=== PATIENT | female | born 1955 | race Caucasian/White ===

== ENCOUNTER → 2020-04-11 11:25 | Outpatient (CLI) | payer MEDICARE, SELFPAY ==
--- NOTE | ~2020-04-11 | US_ITS ---
US transvaginal DATE: 04/11/2020 11:48 INDICATION: Postmenopausal bleeding TECHNIQUE: Real-time imaging via transvaginal approach COMPARISON: 12/05/2017 transvaginal pelvic ultrasound examination FINDINGS: There is mesh is approximately 5.7 cm height, 2.7 cm AP and 3.2 cm transverse dimension. Th e endometrial echo measures approximately 3 mm AP dimension. Right anterior approximate 1 cm uterine fibroid is suggested. Approximate 7 mm hyperechoic left uterine fibroid is suggested. The ovaries are not detected. No pelvic mass or abnormal pelvic fluid collection is noted. IMPRESSION: Probable small uterine fibroids The ovaries are not detected No pelvic mass or abnormal pelvic fluid collection is evident. Reviewed, dictated and finalized at Location [facility]. Reviewed, dictated and finalized at location B.
== END ==
PROVIDERS: PCP Internal Medicine; Visit Provider Nurse Practitioner
DX: N95.0 Postmenopausal bleeding (principal)
CPT/HCPCS: 76830

== ENCOUNTER 2020-05-03 11:16 | Outpatient (CLI) | payer MEDICARE, SELFPAY ==
--- NOTE | 2020-05-03 11:18 | ECG_ITS ---
Measurements Intervals [place] Rate: 80 P: 58 DE: 161 QRS: -4 QRSD: 102 T: 39 QT: 369 QTc: 428 Interpretive Statements SINUS RHYTHM POOR R WAVE PROGRESSION, ANTERIOR LEADS BASELINE ARTIFACT- I, II, III, AVR, AVL, AVF BORDERLINE ECG Electronically Signed On 05-03-2020 12:03:29 CDT by Stevo Hirsch D.O.
== END 2020-05-03 11:17 | disposition home or self-care (01) ==
LOC: ANHSURGERY 11:18
PROVIDERS: PCP Internal Medicine; Visit Provider Obstetrics & Gynecology Gynecology
DX: Z01.818 Encounter for other preprocedural examination (principal); I10 Essential (primary) hypertension
CPT/HCPCS: 93005

== ENCOUNTER 2020-05-05 03:36 | Outpatient (CLI) | payer MEDICARE, SELFPAY ==
[2020-05-05 17:45] LABS: SARS-CoV-2 RNA PCR Negative
== END 2020-05-05 03:37 | disposition home or self-care (01) ==
LOC: ANHCOVIDDT 03:36
PROVIDERS: PCP Internal Medicine; Visit Provider Obstetrics & Gynecology Gynecology
DX: Z01.812 Encounter for preprocedural laboratory examination (principal); Z20.828 Contact with and (suspected) exposure to other viral communicable diseases
CPT/HCPCS: 87635; C9803; U0003

== ENCOUNTER 2020-05-08 01:11 | Day surgery (SDC) | payer MEDICARE, SELFPAY ==
[2020-05-01 12:39] VITALS: BMI 38.7
[2020-05-08] MEDS: LACTATED RINGERS 1,000 ML 30 ML IV CONT ×2 (07:30→10:16)
--- NOTE | 2020-05-08 07:36 | PM.HPGS ---
History of Present Illness History of Present Illness Consent: Risks, benefits, and alternatives have been discussed and questions answered. Patient agrees to proceed with procedure. Chief complaint: Post Menopausal Bleeding Narrative: Rosalia Chavira is a 64 year old female with postmenopausal bleeding. Patient with history of prior D&C with polyps. Recommend to proceed with hysteroscopy and D&C. Reviewed possible pathology as well as risks of procedure (including infection, bleeding, perforation). Agrees to proceed. [facility] Past Medical History Medical History (Updated 05/08/20 @ 07:50 by Ofelia Chairez MD) Anxiety BMI 39.0-39.9,adult Cholecystectomy planned Depression Essential hypertension Hypothyroidism Obesity Status post hysteroscopy 2009, 2012, 2018 Surgical History Surgical History (Updated 05/08/20 @ 07:41 by Ofelia Chairez MD) H/O breast biopsy H/O: knee surgery x 2 arthoscopy and Left Total knee replacement History of appendectomy History of hernia surgery Previous back surgery S/P laparoscopic cholecystectomy Family History Family History Mother Hypertension Family history of arthritis Father Family history of congestive heart failure Social History Social History Smoking packs per day: 0.5 Smoking cigarettes per day: 10.0 Years smoked: 4 Smoking pack-years: 2.00 Smoking status: Former smoker Tobacco type: cigarettes Second hand tobacco smoke exposure: No Smoking end date: 07/14/79 Alcohol intake: current Living arrangements: with family Spiritual care concerns: No Meds Home Medications and Allergies Home Medications Medication Instructions Recorded Confirmed Type amlodipine 5 mg tablet 5 mg PO DAILY 10/05/19 05/01/20 History montelukast 10 mg tablet 10 mg PO DAILY 10/05/19 05/01/20 History odmztefaqwot-rlcozjbf-snzoqo tablet 1 tablet PO DAILY 10/05/19 05/01/20 History potassium gluconate 550 mg (90 mg) 550 mg PO DAILY 11/03/19 05/01/20 History tablet valacyclovir 500 mg tablet 500 mg PO PRN PRN 11/03/19 05/01/20 History cholecalciferol (vitamin D3) 125 5,000 unit PO DAILY tablet 04/27/20 05/01/20 History mcg (5,000 unit) tablet levothyroxine 112 mcg tablet 112 mcg PO QAM 90 Days #90 tablet 04/27/20 05/01/20 Rx Allergies Allergy/AdvReac Type Severity Reaction Status Date / Time adhesive Allergy Unknown RASH Verified 05/01/20 12:31 bacitracin AdvReac Rash Verified 05/01/20 12:31 [From Neosporin ([id number])] Exam Const: General: healthy appearing and alert Orientation/consciousness: patient oriented x3 Resp: Effort & Inspection: normal respiratory effort Auscultation: clear to auscultation bilaterally Cardio: Rate: regular rate Rhythm: regular rhythm GI: GI Palp: Yes Soft to palpation, No Tenderness to palpation present (GI) and No Palpable mass present : External Female Exam: normal external appearance Speculum Exam - Vagina: normal appearance of the vagina and normal vaginal discharge Speculum Exam - Cervix: normal appearance of the cervix Bimanual exam- vagina & uterus: uterine size normal and consistency normal Bimanual Exam- Adnexa, other: normal adnexae and No adnexal tenderness Neuro: General: patient oriented x3 Assessment and Plan Assessment and plan (1) Post-menopausal bleeding: Code(s): N95.0 - Postmenopausal bleeding Status: Acute Assessment and Plan: plan hysteroscopy with D&C
[2020-05-08] MEDS: ACETAMINOPHEN 500 MG TABLET 1000 MG PO (07:37)
--- NOTE | 2020-05-08 07:51 | WPDHPUPDATE1 ---
History and Physical Update Update Date/Time: 05/08/20 07:51 History and Physical has been reviewed, including an updated exam of the patient. There are NO changes in the patient's condition. Risks, benefits, and alternatives have been discussed and questions answered. Patient agrees to proceed with procedure.
[2020-05-08 08:00] VITALS: BP 141/69; PULSE 77; RESP 18; TEMP 36.4; O2SAT 99
--- NOTE | 2020-05-08 08:05 | WPDANESEPPF ---
Anes - Initial Pre Proc Eval Procedure: Operation Date: 05/08/20 09:00 Proposed Procedures p Hysteroscopy Dilation and Curettage - Ofelia Chairez MD Date/Time: 05/08/20 08:05 Surgeon: Ofelia Chairez MD Pre Op Diagnosis: Post Menopausal Bleeding Patient Data Age: 64 Gender: F Height: 1.68 m Weight: 108.9 kg Allergies Allergy/AdvReac Type Severity Reaction Status Date / Time adhesive Allergy Unknown RASH Verified 05/01/20 12:31 bacitracin AdvReac Rash Verified 05/01/20 12:31 [From Neosporin ([id number])] Home Medications Medication Instructions Recorded Confirmed Type amlodipine 5 mg tablet 5 mg PO DAILY 10/05/19 05/01/20 History montelukast 10 mg tablet 10 mg PO DAILY 10/05/19 05/01/20 History fzebaakzopni-jznyiywl-slepqc tablet 1 tablet PO DAILY 10/05/19 05/01/20 History potassium gluconate 550 mg (90 mg) 550 mg PO DAILY 11/03/19 05/01/20 History tablet valacyclovir 500 mg tablet 500 mg PO PRN PRN 11/03/19 05/01/20 History cholecalciferol (vitamin D3) 125 5,000 unit PO DAILY tablet 04/27/20 05/01/20 History mcg (5,000 unit) tablet levothyroxine 112 mcg tablet 112 mcg PO QAM 90 Days #90 tablet 04/27/20 05/01/20 Rx Patient hx anesthesia problems: none Family hx anesthesia problems: none PMFSH Past Medical History Medical History (Updated 05/08/20 @ 07:50 by Ofelia Chairez MD) Anxiety BMI 39.0-39.9,adult Cholecystectomy planned Depression Essential hypertension Hypothyroidism Obesity Status post hysteroscopy 2009, 2012, 2018 Surgical History Surgical History (Updated 05/08/20 @ 07:41 by Ofelia Chairez MD) H/O breast biopsy H/O: knee surgery x 2 arthoscopy and Left Total knee replacement History of appendectomy History of hernia surgery Previous back surgery S/P laparoscopic cholecystectomy Family History Family History Mother Hypertension Family history of arthritis Father Family history of congestive heart failure Social History Social History Smoking packs per day: 0.5 Smoking cigarettes per day: 10.0 Years smoked: 4 Smoking pack-years: 2.00 Smoking status: Former smoker Tobacco type: cigarettes Second hand tobacco smoke exposure: No Smoking end date: 07/14/79 Alcohol intake: current Living arrangements: with family Spiritual care concerns: No Anes - Eval Final PreProcedure Day of Procedure 05/08/20 08:05 Patient weight: obese Heart: regular rate and rhythm Lungs: clear to auscultation and normal air movement Airway: Mallampati scale class II Neurological: alert and oriented Last oral intake: >/= 8 hours ASA classification: III Emergent: no Anesthetic plan: proceed Anesthesia type and monitoring: general GIVS and standard monitoring Informed Consent: The patient's anesthetic plan and its attendant risks and benefits were discussed with the patient/family/POA. Questions were solicited and answers provided to the satisfaction of the patient/family/POA.
[2020-05-08] MEDS: KETOROLAC 30 MG/ML VIAL (*BKC) IV PUSH (09:22)
--- NOTE | 2020-05-08 09:23 | SUR.OPER ---
250ml ns in, 250ml out aware
--- NOTE | 2020-05-08 09:24 | P.OP_ITS ---
Procedure Note - Detailed Date of procedure: 05/08/20 Pre-op diagnosis: Post Menopausal Bleeding Post-op diagnosis: same Procedure performed: D&C hysteroscopy with myosure polpyectomy Description of procedure: The patient is taken to the operating room and placed under anesthesia in the dorsal lithotomy position. She has prepped and draped in the usual sterile fashion. The bivalve speculum was placed in the vagina and cervix grasped on the anterior lip with a tenaculum. Cervix was injected with 1% lidocaine. The internal os is stenotic therefore the os Finders were opened in used the cervix is then able to be dilated. The [employer] stic hysteroscope was placed with the stated findings. Polyp forceps are used to attempt removal of the polyp. This was somewhat successful although the base was unable to be removed. The MyoSure device was opened and placed and the polyp base is removed under direct visualization. MyoSure device is removed and sharp curette is used to sharply curette the endometrium until a good uterine cry noted in all areas. Minimal material was obtained consistent with the atrophic appearance. All instruments were then removed. Patient was awakened from anesthesia taken to recovery in stable condition. Sponge, instrument,. and needles were correct per OR staff Anesthesia: MAC and local Surgeon: Ofelia Chairez MD Estimated blood loss (mL): 5 Drains: No Packing: No Pathology: yes (endometrial shavings and curettings) Complications: No immediate complications Condition: stable Disposition: PACU Findings: cervix stenotic; uterus 6 cm; atrophic; polyp right lateral wall
[2020-05-08 09:30] VITALS: BP 128/87; PULSE 80; RESP 16; O2SAT 97
[2020-05-08] MEDS: fentaNYL CITRATE INJ (*CRX) 100 MCG/2 ML VIAL 25 MCG IV PUSH ×3 (09:46→10:33)
[2020-05-08 10:00] VITALS: BP 144/71; PULSE 72; RESP 20
[2020-05-08 10:30] VITALS: BP 150/65; PULSE 73; RESP 18
[2020-05-08] MEDS: oxyCODONE HCL (*CRX) 5 MG TAB IR PO (10:45)
[2020-05-08 11:17] VITALS: BP 146/58; PULSE 74; RESP 18
== END 2020-05-08 11:35 | disposition home or self-care (01) ==
PROVIDERS: PCP Internal Medicine; Visit Provider Obstetrics & Gynecology Gynecology
PROC: 0U5B8ZZ Destruction of Endometrium, Via Natural or Artificial Opening Endoscopic (ICD-10-PCS; CPT 58563; principal; 2020-05-08 09:00)
DX: N95.0 Postmenopausal bleeding (principal); I10 Essential (primary) hypertension; E03.9 Hypothyroidism, unspecified; F41.8 Other specified anxiety disorders; E66.01 Morbid (severe) obesity due to excess calories; Z68.41 Body mass index [BMI] 40.0-44.9, adult; Z87.891 Personal history of nicotine dependence
CPT/HCPCS: 58558; 88305; 93005; A9270; J1100; J1885; J2250; J2405; J2704; J3010; J7030; J7120

== ENCOUNTER 2020-06-16 02:18 | Outpatient (CLI) | payer MEDICARE, SELFPAY ==
[2020-06-16 19:10] LABS: SARS-CoV-2 RNA PCR Negative
== END 2020-06-16 02:19 | disposition home or self-care (01) ==
LOC: ANHCOVIDDT 02:18
PROVIDERS: PCP Internal Medicine; Visit Provider Orthopaedic Surgery
DX: Z20.828 Contact with and (suspected) exposure to other viral communicable diseases (principal); Z01.812 Encounter for preprocedural laboratory examination
CPT/HCPCS: 87635; C9803; U0003

== ENCOUNTER 2020-06-19 00:49 | Day surgery (SDC) | payer MEDICARE, SELFPAY ==
[2020-06-14 09:52] VITALS: BMI 39.0
[2020-06-19] MEDS: ACETAMINOPHEN 500 MG TABLET 1000 MG PO (08:20)
[2020-06-19 08:30] VITALS: BP 151/97; PULSE 97; RESP 20; TEMP 36.3; O2SAT 100
[2020-06-19] MEDS: KETOROLAC 15 MG/ML VIAL (*BKC) IV PUSH (08:34)
[2020-06-19] MEDS: LACTATED RINGERS 1,000 ML 30 ML IV CONT (08:34)
--- NOTE | 2020-06-19 08:39 | WPDANESEPPF ---
Anes - Initial Pre Proc Eval Procedure: Operation Date: 06/19/20 09:30 Proposed Procedures p Right First Dorsal Compartment Release - Julio César Rodgers MD Date/Time: 06/19/20 08:39 Surgeon: Julio César Rodgers MD Pre Op Diagnosis: Dequervains right First Dorsal Compartment Patient Data Age: 65 Gender: F Height: 5 ft 6 in Weight: 109.77 kg Allergies Allergy/AdvReac Type Severity Reaction Status Date / Time adhesive Allergy Mild RASH Verified 06/19/20 08:17 polymyxin B AdvReac Mild Rash Verified 06/19/20 08:17 [From Neosporin Plus] Home Medications Medication Instructions Recorded Confirmed Type amlodipine 5 mg tablet 5 mg PO DAILY 10/05/19 06/19/20 History montelukast 10 mg tablet 10 mg PO DAILY 10/05/19 06/19/20 History ondoctdsfmoe-actyholp-mcrwze tablet 1 tablet PO DAILY 10/05/19 06/19/20 History potassium gluconate 550 mg (90 mg) 550 mg PO DAILY 11/03/19 06/19/20 History tablet valacyclovir 500 mg tablet 500 mg PO PRN PRN 11/03/19 06/19/20 History cholecalciferol (vitamin D3) 125 5,000 unit PO DAILY tablet 04/27/20 06/19/20 History mcg (5,000 unit) tablet levothyroxine 112 mcg tablet 112 mcg PO QAM 90 Days #90 tablet 04/27/20 06/19/20 Rx Patient hx anesthesia problems: none Family hx anesthesia problems: none PMFSH Past Medical History Medical History Anxiety BMI 39.0-39.9,adult BMI 40.0-44.9, adult Cholecystectomy planned Depression Essential hypertension Hypothyroidism Obesity Status post hysteroscopy 2009, 2012, 2018 Surgical History Surgical History H/O breast biopsy H/O: knee surgery x 2 arthoscopy and Left Total knee replacement History of appendectomy History of hernia surgery Previous back surgery S/P laparoscopic cholecystectomy Family History Family History Mother Hypertension Family history of arthritis Father Family history of congestive heart failure Social History Social History Smoking packs per day: 0.5 Smoking cigarettes per day: 10.0 Years smoked: 4 Smoking pack-years: 2.00 Smoking status: Former smoker Tobacco type: cigarettes Second hand tobacco smoke exposure: Yes ( OUTSIED) Smoking end date: 07/14/79 Alcohol intake: current Drinks per week: 2 Substance use: never Substance use type: does not use Spiritual care concerns: No Anes - Eval Final PreProcedure Day of Procedure 06/19/20 08:39 Patient weight: morbidly obese Heart: regular rate and rhythm Lungs: clear to auscultation Airway: Mallampati scale class II Neurological: alert and oriented Last oral intake: >/= 8 hours ASA classification: III Emergent: no Anesthetic plan: proceed Anesthesia type and monitoring: general GIVS and standard monitoring Informed Consent: The patient's anesthetic plan and its attendant risks and benefits were discussed with the patient/family/POA. Questions were solicited and answers provided to the satisfaction of the patient/family/POA.
--- NOTE | 2020-06-19 08:47 | WPDHPUPDATE1 ---
History and Physical Update Update Date/Time: 06/19/20 08:47 History and Physical has been reviewed, including an updated exam of the patient. There are NO changes in the patient's condition. Risks, benefits, and alternatives have been discussed and questions answered. Patient agrees to proceed with procedure.
[2020-06-19] MEDS: ceFAZolin 2 GM/D5W 50 ML 2 GM/50 ML BAG IVPB (08:54)
[2020-06-19 09:19] VITALS: BP 105/68; PULSE 79; RESP 12; O2SAT 97
--- NOTE | 2020-06-19 09:23 | P.OP_ITS ---
Procedure Note - Detailed Date of procedure: 06/19/20 Pre-op diagnosis: Dequervains right First Dorsal Compartment Post-op diagnosis: same Procedure performed: The patient was identified and proper site identified. She was taken to the operating room and transferred to the OR table placing her supine taking care to pad her torso and extremities. A nonsterile tourniquet was placed high on the right arm. The right upper extremity was prepped and draped in usual sterile fashion. She was administered IV sedation. Several cc of 0.25% Marcaine and epinephrine solution was infiltrated into the subcutaneous tissue over the right radial styloid. Extremity was exsanguinated and the tour niquet was inflated to 250 mmHg remaining up for approximately 9 minutes. Longitudinal incision was made over the radial styloid. Subcutaneous tissue was bluntly dissected protecting neurovascular structures. The first dorsal compartment was identified and then transected in line with the tendons releasing the contents. The tendons were delivered into the wound to verify the adequacy of the release. The wound was irrigated with sterile saline. Hemostasis was carried out. Skin edges were reapproximated with 4-0 Prolene suture and Steri-Strips. Sterile dressing was applied. Tourniquet was released. She tolerated procedure well and was transferred back to the car taken to recovery area in stable condition. There were no known intraoperative complications. Estimated blood loss was negligible. Perioperative antibiotics were administered. Anesthesia: MAC and local Surgeon: Julio César Rodgers MD Estimated blood loss (mL): 1 Tourniquet time (min): 9 Drains: No Packing: No Pathology: none sent Complications: No immediate complications Condition: stable Disposition: PACU
[2020-06-19 09:49] VITALS: BP 152/59; PULSE 72; RESP 12; O2SAT 96
[2020-06-19 10:19] VITALS: BP 154/67; PULSE 65; RESP 12
== END 2020-06-19 10:35 | disposition home or self-care (01) ==
PROVIDERS: PCP Internal Medicine; Visit Provider Orthopaedic Surgery
PROC: (CPT 25000; principal; 2020-06-19 09:30)
DX: M65.4 Radial styloid tenosynovitis [de Quervain] (principal); I10 Essential (primary) hypertension; E03.9 Hypothyroidism, unspecified; F41.8 Other specified anxiety disorders; Z87.891 Personal history of nicotine dependence; E66.01 Morbid (severe) obesity due to excess calories; Z68.39 Body mass index [BMI] 39.0-39.9, adult
CPT/HCPCS: 25000; A9270; J0690; J1885; J2405; J2704; J3010; J7120

== ENCOUNTER 2020-12-14 10:45 | Outpatient (CLI) | payer MEDICARE, SELFPAY ==
[2020-12-14 11:57] LABS: Total Triiodothyronine (T3) 1.02 NG/ML (0.97-1.69)
[2020-12-14 12:03] LABS: Free T4 Free Thyroxine 1.17 ng/mL (0.78-2.19); Vitamin D 25 Hydroxy 51.7 ng/mL
== END 2020-12-14 10:46 | disposition home or self-care (01) ==
LOC: ANHLAB 10:50
PROVIDERS: PCP Internal Medicine; Visit Provider Internal Medicine Endocrinology, Diabetes & Metabolism
DX: E03.9 Hypothyroidism, unspecified (principal); E55.9 Vitamin D deficiency, unspecified
CPT/HCPCS: 36415; 82306; 84439; 84443; 84480

== ENCOUNTER 2021-02-19 09:30 | Outpatient (RCR) | payer MEDICARE, SELFPAY ==
[2021-01-08 10:55] VITALS: BP_SYST 170
--- NOTE | 2021-01-08 14:44 | PTOPEVAL ---
Addendum entered by Kacey Bay, PT 01/08/21 14:49: Please change requested follow frequency to 1x/wk x 10 wk due to high copay. Original Note: Thank you for referring Rosalia Chavira to [facility].? The patient is scheduled to be seen for therapy? 2 x/week for 5 weeks. Please review, sign, date and return this plan of care SANG. I agree with and certify that the following plan of care is medically necessary. Referring Physician Date Attending Provider: Julio César Rodgers MD Diagnosis right shoulder pain Onset 11/01 Additional Evaluation Detail injection on 12/19/20, improved pain and symptoms. Subjective Information She has increased pain with Query Text:As Reported By Patient/ lifting her mattress to put Family the sheets on. She c/o pain and limitations with lifting heavier objects. Increased pain with reaching motion. Denies pain waking her at night. Sleeps on her sides. She c/o popping of shoulder with movement. Does not perform a fitness or stretching program. Diagnostic Tests X-Rays For This Problem Yes: moderate to severe AC arthritic Pain Assessment Self Report Pain Assessment Right Shoulder(s) Reported Pain Level 3 Pain Description Sharp Pain Frequency Continuous Lowest Pain Intensity 3 Greatest Pain Intensity 6 Pain Aggravating Factors Exercise/Activity,Lifting Pain Behaviors None Upper Extremity Range of Motion Scapular/ Shoulder Range of Motion Left Shoulder Flexion - Active 148 Shoulder Flexion - Passive 160 Shoulder Extension - Active 58 Shoulder Abduction - Active 155 Shoulder Abduction - Passive 170 Shoulder Medial Rotation - Active 40 Shoulder Medial Rotation - Active T9 Query Text:Reach Behind the Back Shoulder Lateral Rotation - Active 70 Shoulder Lateral Rotation - Active T1 Query Text:Reach Behind the Head Scapular/Shoulder Range of Motion GH joint abducted 60 dg, pain Comments with med. rot. Right Shoulder Flexion - Active 142 Shoulder Flexion - Passive 170 Shoulder Extension - Active 50 Shoulder Abduction - Active 90 Shoulder Abduction - Passive 170 Shoulder Medial Rotation - Active 65 Shoulder Medial Rotation - Active L2 Query Text:Reach Behind the Back Shoulder Lateral Rotation - Active 75 Shoulder Lateral Rotation - Active C6 Query Text:Reach Behind the Head Scapular/Shoulder Range of Motion Pain
--- NOTE | 2021-02-13 11:19 | PCPTNOTE ---
Patient called & cancelled scheduled appointment this date due to taking her car into the shop today.
[2021-02-19 09:37] VITALS: BP_SYST 170
--- NOTE | 2021-02-19 10:29 | PTOPEVAL ---
Physical Therapy Discharge Note Thank you for referring Rosalia Chavira to [facility].? Rosalia has received 5 therapy visits of 1x/wk to address her right shoulder pain. She demonstrates improved shoulder motion, strength and pain as a result of skilled therapy services. She has partially achieved her therapy goals at this time. Will plan to DC skilled therapy services with recommendations to preform home program. Please review, sign, date and return this discharge summary SANG. I agree with and certify that the following plan of care is medically necessary. Referring Physician Date Attending Provider: Julio César Rodgers MD Diagnosis right shoulder pain Onset 11/01 Additional Evaluation Detail injection on 12/19/20, improved pain and symptoms. Subjective Information She reports her shoulder Query Text:As Reported By Patient/ varies on the activities she Family is performing on each day. She cont to c/o popping of shoulder with movement. She is able to lift her mattress again without pain. She is able to carry objects without restrictions. She is performing reaching motions without increased pain. She demonstrates the painful motion with shoulder abducted to end range with shoulder int rotation position causing poor movement pattern of GH/ scapulothoracic joints. Pain Assessment Right Shoulder(s) Reported Pain Level 1 Lowest Pain Intensity 1 Greatest Pain Intensity 2 Upper Extremity Range of Motion Scapular/ Shoulder Range of Motion Right Shoulder Flexion - Active 154 Shoulder Flexion - Passive 160 Shoulder Extension - Active 50 Shoulder Abduction - Active 150 Shoulder Abduction - Passive 170 Shoulder Medial Rotation - Active 74 Shoulder Medial Rotation - Active T12:Reach Behind the Back Shoulder Lateral Rotation - Active 80 Scapular/Shoulder Range of Motion improved inf GH glide and Comments scapulothoracic movement Upper Extremity Muscle Strength Testing Scapular/Shoulder Left Scapular Retraction - Middle Trapezius 2 Poor Scapular Retraction - Lower Trapezius 2 Poor Shoulder Flexion Strength 4- Good - Shoulder Extension Strength 5 Normal Shoulder Abduction Strength 3+ Fair + Shoulder Medial Rotation Strength 5 Normal Shoulder Lateral Rotation Strength 5 Normal Right Scapular Retraction - Middle Trapezius 2 Poor Scapular Retraction - Lower Trapezius 2 Poor Shoulder Flexion Strength 4- Good - Shoulder Extension
== END 2021-02-21 15:24 | disposition home or self-care (01) ==
LOC: ANHPT 09:30
PROVIDERS: PCP Internal Medicine; Visit Provider Orthopaedic Surgery
DX: M25.511 Pain in right shoulder (principal); G89.29 Other chronic pain
CPT/HCPCS: 97035; 97110; 97140; 97162

== ENCOUNTER 2021-09-04 09:09 | Outpatient (CLI) | payer MEDICARE, SELFPAY ==
[2021-09-04 17:04] LABS: Free T4 Free Thyroxine 1.12 ng/mL (0.78-2.19); Vitamin D 25 Hydroxy 35.2 ng/mL
[2021-09-04 17:17] LABS: Alanine Aminotransferase 43 U/L (4-35); Albumin Level 4.2 g/dL (3.5-5.1); Alkaline Phosphatase 226 U/L (38-126); Anion Gap 4 mmol/L (8-16); Aspartate Amino Transferase 88 U/L (14-36); Bilirubin,Total 0.6 mg/dL (0.2-1.3); Blood Urea Nitrogen 14 mg/dL (7-17); Calcium 8.9 mg/dL (8.4-10.2); Carbon Dioxide 27 mmol/L (22-30); Chloride 105 mmol/L (98-107); Cholesterol 212 mg/dL (0-200); Estimated Glomerular Filt Rate > 60; Glucose 95 mg/dL (65-110); HDL Direct 105 mg/dL; Sodium 136 mmol/L (137-145); Triglycerides 91 mg/dL (<150)
[2021-09-04 17:28] LABS: LDL Cholesterol Direct 67 mg/dL
[2021-09-04 17:48] LABS: Total Triiodothyronine (T3) 1.02 NG/ML (0.97-1.69)
== END 2021-09-04 09:10 | disposition home or self-care (01) ==
LOC: ANHWCLAB 09:15
PROVIDERS: PCP Internal Medicine; Visit Provider Nurse Practitioner Family
DX: E03.9 Hypothyroidism, unspecified (principal); E55.9 Vitamin D deficiency, unspecified
CPT/HCPCS: 36415; 80053; 80061; 82306; 84439; 84443; 84480

== ENCOUNTER 2023-02-06 10:24 | Outpatient (CLI) | payer MEDICARE, SELFPAY ==
[2023-02-06 16:08] LABS: Free T4 Free Thyroxine 1.66 ng/mL (0.78-2.19)
== END 2023-02-06 10:25 | disposition home or self-care (01) ==
LOC: ANHWCLAB 10:28
PROVIDERS: PCP Internal Medicine; Visit Provider Nurse Practitioner Family
DX: E03.9 Hypothyroidism, unspecified (principal); E55.9 Vitamin D deficiency, unspecified
CPT/HCPCS: 36415; 82306; 84439; 84443

== ENCOUNTER 2023-11-05 13:02 | Outpatient (CLI) | payer MEDICARE, SELFPAY ==
[2023-11-05 16:40] LABS: Alanine Aminotransferase 25 U/L (6-35); Albumin Level 4.1 g/dL (3.5-5.1); Alkaline Phosphatase 322 U/L (38-126); Anion Gap 4 mmol/L (4-12); Aspartate Amino Transferase 55 U/L (14-36); Bilirubin,Total 0.4 mg/dL (0.2-1.3); Blood Urea Nitrogen 11 mg/dL (7-17); Carbon Dioxide 26 mmol/L (22-30); Chloride 108 mmol/L (98-107); Cholesterol 180 mg/dL (0-200); Estimated Glomerular Filt Rate > 60; Glucose 99 mg/dL (65-110); HDL Direct 84 mg/dL; Potassium 4.3 mmol/L (3.4-5.0); Sodium 138 mmol/L (137-145); Triglycerides 87 mg/dL (<150)
[2023-11-05 16:51] LABS: LDL Cholesterol Direct 80 mg/dL
[2023-11-05 17:52] LABS: Hemoglobin A1C 5.3 % (<5.7)
[2023-11-05 18:26] LABS: Free T4 Free Thyroxine 1.32 ng/mL (0.78-2.19); Vitamin D 25 Hydroxy 35.8 ng/mL
== END 2023-11-05 13:03 | disposition home or self-care (01) ==
LOC: ANHWCLAB 13:03
PROVIDERS: PCP Internal Medicine; Visit Provider Internal Medicine Endocrinology, Diabetes & Metabolism
DX: E03.9 Hypothyroidism, unspecified (principal); E55.9 Vitamin D deficiency, unspecified; E66.9 Obesity, unspecified; Z68.42 Body mass index [BMI] 45.0-49.9, adult
CPT/HCPCS: 36415; 80053; 80061; 82306; 83036; 84439; 84443

== ENCOUNTER 2024-05-19 09:21 | Outpatient (CLI) | payer MEDICARE, SELFPAY ==
--- NOTE | ~2024-05-19 | US_ITS ---
Limited Abdominal Sonogram: Real-time sonographic imaging of the right upper quadrant was performed. Clinical History: Abnormal lab results Findings: The liver appears echogenic, with no evidence of mass lesion or bile duct dilatation. Main portal vein demonstrates normal direction of flow. The gallbladder is absent, compatible prior royer cystectomy. The common bile duct measures 9 mm. The visualized pancreas, aorta, and IVC are unremark able. Impression: Diffuse fatty infiltration of the liver. Reviewed, dictated and finalized at location M. E INSPECTOR Impression: Diffuse fatty infiltration of the liver.
--- NOTE | ~2024-05-19 | US_ITS ---
EXAMINATION: US carotid duplex BI DATE: 05/19/2024 10:39 INDICATION: Recent left-sided vision loss TECHNIQUE: Grayscale, color Doppler, and pulsed Doppler images of the cervical carotid arteries were obtained. The degree of vessel stenosis is placed in one of the following categories: normal, <50%, 5 0-69%, >=70% but less than near-occlusion, near-occlusion, or total occlusion. Note that percent sten osis relative to normal distal artery lumen diameter is indirectly measured from velocity measurement s as described by Fredrick, et al. Radiology 2003; 229:340-346. Notes: Normal: Peak systolic velocity <125 centimeters/sec and no plaque <50%. Peak systolic velocity <125 ( EDV <40; ICA/CCA PSV ratio <2.0; used these factors only a tandem lesions or low cardiac output or co ntralateral disease) 50-69 %: PSV 125-230 (EDV 40-100; ratio 2-4) >= 70% but less than near occlusion: PSV greater than 230 (EDV > 100; ratio> 4.0) Near Occlusion: PSV that is variable; markedly narrowed lumen Occlusion: Absent flow on color/spectral Doppler and no lumen on ambrosio scale. COMPARISON: None. FINDINGS: RIGHT: The right common carotid artery (CCA) peak systolic velocity (PSV) is 83 cm/s. The right internal car otid artery (ICA) PSV is 99 cm/s. The right ICA end-diastolic velocity (EDV) is 36 cm/s. The right IC A/CCA PSV ratio is 1.2. The external carotid artery (ECA) PSV is 69 cm/s. There is antegrade flow in the right vertebral artery. LEFT: The left CCA PSV is 40 cm/s. The left ICA PSV is 59 cm/s. The left ICA EDV is 8 cm/s. The left ICA/CC A PSV ratio is 1.5. The ECA PSV is 69 cm/s. There is antegrade flow in the left vertebral artery. IMPRESSION: 1. Less than 50% stenosis in the right internal carotid artery by sonographic criteria. 2. Less than 50% stenosis in the left internal carotid artery by sonographic criteria. Reviewed, dictated and finalized at location B. VERY TABLE FEEDER IMPRESSION: 1. Less than 50% stenosis in the right internal carotid artery by sonographic c lennox. 2. Less than 50% stenosis in the left internal carotid artery by sonographic vickie hay.
== END 2024-05-19 09:22 | disposition home or self-care (01) ==
PROVIDERS: PCP Internal Medicine; Visit Provider Internal Medicine
DX: I65.23 Occlusion and stenosis of bilateral carotid arteries (principal); K76.0 Fatty (change of) liver, not elsewhere classified
CPT/HCPCS: 76705; 93880

== ENCOUNTER 2024-12-27 00:53 | Day surgery (SDC) | payer MEDICARE, SELFPAY ==
--- NOTE | 2024-12-16 08:46 | PC.NURSE ---
Report to the Outpatient Waiting Room, entrance under the green pavilion located off [facility], at time _6 am on date ___12/27/24____. Planned Procedure Time: ___7:30 am .? Time changes happen often and if your time is changed the preop area will call you the afternoon before. - You and your visitor will be asked to self-screen and do not enter if you have any COVID symptoms. Please call surgeon if you need to reschedule. - A mask is optional within the hospital at this time. Patients may have clear liquids (water, carbonated beverages, clear teas, apple juice) until 3 hours prior to surgery ( 4:30 am ) with a maximum of 20 ounces. - No food from midnight until time of surgery and no smoking, or chewing tobacco (or any form of nicotine). No chewing gum, candy or mints. Take only the following medications with a SIP of water on the morning of surgery: __LEVOTHYROXINE DO NOT STOP ANY OF YOUR OTHER PRESCRIPTION MEDICATIONS PRIOR TO SURGERY EXCEPT THE FOLLOWING Hold all vitamins and supplements for 3 days per anesthesiologist.LAST DOSE 12/23/24 Medications to discontinue per physician PT TO CALL DR CLARKE- ASPIRIN, [place] Please no make-up, nail togolese, hairspray, perfume, deodorant, or body powder the day of surgery.? No jewelry (including any body piercings) or valuables the day of surgery, leave them at home.? Please take a shower or bath the night before, or the morning of, surgery with an antibacterial soap.? Wear comfortable, loose fitting clothing.? Children are encouraged to wear pajamas. - Jewelry must be removed prior to entering the operating room.? Rings and piercings that are not removed may be cut off. - The hospital will not accept responsibility for valuables.? - Please leave all valuables, including medications, at home the day of surgery. If you are going home after surgery, a licensed bottom hoop driver must drive you home.? - NO public transportation without another adult if you receive anesthesia. - We recommend that an adult stay with you for 24 hours following discharge. - We also recommend that you do not drive, make important decision, drink alcoholic beverages, or take any drugs that were not prescribed by your health care provider for at least 24 hours after your discharge time. For Pediatric surgeries, we recommend two adults accompany the child home. Follow any additional instructions given to you from your surgeon. Telephone instructions given to __PATIENT and asked if any additional questions and then verbalized understanding. Patient advised to call surgeon office or pre surgery nurse liaison [phone] if any additional questions.
[2024-12-16 09:09] VITALS: BMI 44.6
--- NOTE | 2024-12-23 07:28 | P.HP_ITS ---
H&P: HPI History of Present Illness Date/Time: 12/23/24 07:28 Chief Complaint: Patient shoulder pain right. She has failed conservative treatment. Her MRI scan shows rotator cuff tearing. She would like to consider rotator cuff repair distal clavicle excision. Review of Systems Musculoskeletal: Musculoskeletal: Reports arthralgias, Reports joint swelling and Reports stiffness [facility] Past Medical History Medical History BMI 40.0-44.9, adult Post-menopausal bleeding Status post hysteroscopy 2009, 2012, 2018 Anxiety Depression Vitamin D deficiency, unspecified BMI 39.0-39.9,adult Extensor intersection syndrome BMI 38.0-38.9,adult Cholecystectomy planned Essential hypertension Obesity Hypothyroidism Surgical History Surgical History Previous back surgery S/P laparoscopic cholecystectomy De Quervain's syndrome (tenosynovitis) Right first dorsal compartment release June 2020 History of hernia surgery History of appendectomy H/O: knee surgery x 2 arthoscopy and Left Total knee replacement H/O breast biopsy Family History Family History Mother Hypertension Family history of arthritis Father Family history of congestive heart failure Social History Social History (Updated 11/11/24 @ 12:58 by Denise Townsend [facility]) Smoking packs per day: 0.5 Smoking cigarettes per day: 10.0 Years smoked: 4 Smoking pack-years: 2.00 Smoking status: Former smoker Tobacco type: cigarettes Second hand tobacco smoke exposure: Yes ( OUTSIED) Smoking end date: 07/14/79 Alcohol intake: current Drinks per week: 2 Substance use: never Substance use type: does not use Do You Feel Safe in your Home?: Yes Lack of Transportation: No Current Housing: I Do Not Have Housing Concerned About Future Housing: No Difficulty Paying Gas/Electric Bills: No Difficulty Paying for Meds: No Currently Unemployed: No Education: High School Diploma/GED Difficulty w/ Childcare or Family Care: No Living arrangements: with family Spiritual care concerns: No Meds Home Medications and Allergies Home Medications ?Medication ?Instructions ?Recorded ?Confirmed ?Type qygqjrqciyio-jeolfdgf-ibosas 1 tablet PO DAILY 10/05/19 12/16/24 History tablet (Multivitamin 50 Plus tablet) potassium gluconate 550 mg (90 mg) 550 mg PO DAILY 11/03/19 12/16/24 History tablet valacyclovir 500 mg tablet 500 mg PO PRN PRN HERPES 11/03/19 12/16/24 History cholecalciferol (vitamin D3) 125 5,000 unit PO DAILY 04/27/20 12/16/24 History mcg (5,000 unit) tablet levothyroxine 112 mcg tablet 112 mcg PO DAILY #90 tabs 06/22/24 12/16/24 Rx phentermine 37.5 mg tablet 37.5 mg PO DAILY #90 tabs 06/22/24 12/16/24 Rx aspirin 81 mg tablet,delayed 81 mg PO DAILY 07/01/24 12/16/24 History release vitamin E (dl, acetate) 45 mg (100 45 mg PO DAILY 07/01/24 12/16/24 History unit) capsule naproxen sodium 220 mg tablet 440 mg PO PRN PRN pain 12/16/24 12/16/24 History (Aleve) Allergies Allergy/AdvReac Type Severity Reaction Status Date / Time adhesive Allergy Mild RASH Verified 12/16/24 08:48 polymyxin B (From Neosporin AdvReac Mild Rash Verified 12/16/24 08:48 Plus) Exam Narrative: On exam she has pain with overhead motion. She is weak in abduction external rotation has marked impingement. Neurologically she is intact. She is tender over the acromioclavicular joint. Eyes: General: appearance normal, both eyes and all related structures Neck: Neck: supple Resp: Effort & Inspection: normal respiratory effort Cardio: Rate: regular rate Rhythm: regular rhythm Shoulder X-Ray 07/01/24 Wrist X-Ray 06/06/20 Orthopedics Result Report 07/01/24 Assessment and Plan Assessment and plan (1) Rotator cuff tear, right: Code(s): M75.101 - Unspecified rotator cuff tear or rupture of right shoulder, not specified as traumatic Status: Acute Assessment and Plan: Patient has rotator cuff tear right she also has acromioclavicular arthritis. She has failed conservative treatment. I would like to consider surgical i ntervention. Her MRI scan shows rotator cuff tear with AC joint arthrosis. Will proceed with arthroscopy of the right shoulder open distal clavicle excision rotator cuff debridement repair proceed as indicated. I have discussed risks, benefits, limitations, and alternatives the patient in detail. (2) Acromioclavicular arthrosis: Code(s): M19.019 - Primary osteoarthritis, unspecified shoulder Status: Acute
[2024-12-27] VITALS (8 sets, daily range): BP systolic 151–163; BP diastolic 59–95; PULSE 73–86; RESP 16–22; TEMP 36.1–36.3; O2SAT 90–98
--- OUTSIDE RECORDS SUMMARY | 2024-12-27 00:56 | XMS_ITS | CONTINUITY OF CARE DOCUMENT ---
Author Name prateek, mikeyasmeen Address Unknown Organization [facility] Address [address] [place] [address] Phone [phone] Care Team Providers Care Bus Dispatcher Interstate Name Role Phone Jose PURDY, Irene Unavailable [phone] NOHEMI PURDY, ANEESH Unavailable [phone] NOHEMI PURDY, ANEESH Unavailable [phone] INSURANCE PROVIDERS Payer name Policy type / Coverage type [place] red libertarian ID UHC MEDICARE COMPLETE HMO Other [id number]
--- OUTSIDE RECORDS SUMMARY | 2024-12-27 00:56 | XMS_ITS | Clinical Summary ---
Author Organization [facility] Address [address] [place] [address] Care Team Providers Care Accordion Maker Name Role Phone Shilpi Apodaca MD Primary Care Provider Source Comments [facility],non-[facility] Affiliates and Associated Physician Practices is amultiple site organization consisting of ambulatory clinics and hospital sitesin [place], [place], [place] and [place]. This disclosure is being madepursuant to the Care Everywhere program and may not contain all information available regarding this patient. Last updated 18.[facility] Allergies Active Allergy Reactions Criticality Noted Date Comments Adhesive Sensitivity Urticaria Medium 03/05/2018 Jayxtmvb-Qhsraxsvlf-Htngwkgyi 2012 Medications * Be aware that medications may not be up to date on this document. Alwaysverify current medications with the patient. amLODIPine (NORVASC) 5 MG tablet Take 5 mg by mouth once daily. Active Calcium Carbonate (CALCIUM 600 PO) Take 1,200 mg by mouth once daily Active multivitamins (ONE A DAY) tablet Take 1 Tab by mouth once daily. Active valACYclovir (VALTREX) 1 GM tablet Take 1,000 mg by mouth every 12 hours. Active levothyroxine (SYNTHROID) 100 MCG tabletIndication s:Fatty liver,Elevated liver enzymes Take 100 mcg by mouth once daily 02/18/2018 Active montelukast (SINGULAIR) 10 MG tabletIndication s:Fatty liver,Elevated liver enzymes Take 10 mg by mouth once daily 02/21/2018 Active Vitamin D, Ergocalciferol, 2000 UNITS CAPSIndications: Fatty liver,Elevated liver enzymes Take 3,000 Units by mouth once daily Active Potassium 99 MG tabletIndication s:Fatty liver,Elevated liver enzymes Take 99 mg by mouth once daily Active phentermine (ADIPEX-P) 37.5 MG tablet Take 37.5 mg by mouth once daily Active Active Problems Problem Noted Date Diagnosed Date Fatty liver 03/05/2018 Overview (02/06/2019): 02/05/19 Fibroscan CAP 318, E 7.6 kPa Depression 03/05/2018 Morbid obesity 03/05/2018 HTN (hypertension), benign Hyperthyroidism Resolved Problems Problem Noted Date Diagnosed Date Resolved Date Fatigue 11/11/2012 11/11/2012 SOB (shortness of breath) on exertion 11/11/2012 12/21/2012 Chest pain 11/11/2012 12/21/2012 Overview (04/13/2015): Social History Tobacco Use Types Packs/Day Years Used Date Smoking Tobacco: Former Cigarettes Smokeless Tobacco: Never Tobacco Cessation:Counseling Given: No Comments:SMOKED FOR 4-5 YEARS, 1ppd-QUIT 24 YEARS AGO Alcohol Use Standard Drinks/Week Comments Yes 6 (1 standard drink = 0.6 oz pur e alcohol) Comments Unknown Sex and Gender Information Value Date Recorded Sex Assigned at Not on file Legal 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 Gender Identity Not on file Sexual Orientation Not on file Last Filed Vital Signs Vital Sign Reading Time Taken Comments Blood Pressure 148/84 02/05/2019 8:47 AM CDT Pulse 84 02/05/2019 8:47 AM CDT Temperature 37 C (98.6 F) 03/05/2018 1:44 PM CDT Respiratory Rate 16 02/05/2019 8:47 AM CDT Oxygen Saturation 99% 02/05/2019 8:47 AM CDT Inhaled Oxygen Concentration - - Weight 99.8 kg (220 lb) 02/05/2019 8:47 AM CDT Height 170.2 cm (5' 7) 02/05/2019 8:47 AM CDT Body Mass Index 34.46 02/05/2019 8:47 AM CDT Plan of Treatment Health Maintenance Due Date Last Done Comments BONE DENSITY TESTING 1954 COLOGUARD (AGES 45-75) - COLON CA SCREENING 1954 COLON MONITORING 1954 COLONOSCOPY - COLON CA SCREENING 1954 CT COLONOGRAPHY - COLON CA SCREENING 1954 Colorectal Cancer Screening 1954 FIT - COLON CA SCREENING 1954 FLEX SIG - COLON CA SCREENING 1954 MAMMOGRAM 1954 DTAP/TDAP/TD VACCINES (1 - Tdap) 1973 PNEUMOCOCCAL VACCINE 50+ (1 of 1 - PCV) 2004 ZOSTER VACCINE (1 of 2) 2004 SCREENING FOR DIABETES 08/26/2022 , 02/16/2019, 11/17/2012 COVID-19 VACCINE ( - season) 2024 DEPRESSION SCREENING 07/14/2024 LIPID TESTING 08/26/2024 08/26/2019, 11/11, 11/17/2012 INFLUENZA VACCINE (Season Ended) 2025 2020, 08/09/2019, 04/15/2018, Additional history exists Respiratory Syncytial Virus (RSV) Vaccine Pt: or over 60 yrs (1 - 1-dose 75+ series) 2029 HEPATITIS C SCREENING Completed 03/09/2018 HEPATITIS B VACCINE Aged Out No longe r eligible based on patient's age to complete this topic HIB VACCINE Aged Out No longer eligi ble based on patient's age to complete this topic HPV VACCINE Aged Out No longer eligi ble based on patient's age to complete this topic MENINGOCOCCAL (Group B) VACCINE SHARED DECISION-MAKING Aged Out No longer eligible based on patient's age to complete this topic MENINGOCOCCAL GROUPS A/C/Y/W VACCINE Aged Out No longer eligible based on patient's age to complete this topic Goals Goal Patient Goal Type Associated Problems Recent Progress Patient-Stated? Author Increase daily physical activity Exercise On track( 019 8:49 AM CDT) Loc Michael, RN Note: USING STATIONARY BIKE, 4-5 X'S/WEEK. HAS LOST 35LB SINCE 05/2018. 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 HTN (hypertension), benign Screening for condition LIPID PROFILE Routine 08/26/2019 12:05 PM RETAIL INTERIOR DESIGNER Fatty liver Screening for condition HEPATITIS C ANTIBODY Routine 03/09/2018 11:07 AM CDT Fatty liver Elevated liver enzymes from Last 3 Months or Most Recently Relevant to Health Maintenance Results * (ABNORMAL) COMPREHENSIVE METABOLIC PANEL (08/26/2019 12:05 PM RETAIL INTERIOR DESIGNER) Glucose 98 65 - 99 mg/dL [facility] Comment: Fasting reference interval BUN 16 7 - 25 mg/dL [facility] Creatinine 0.70 0.50 - 0.99 mg/dL [facility] Comment: For patients >49 years of age, the reference limit for Creatinine is approximately 13% higher for people identified as -Tajik. eGFR by MDRD 91 > OR = 60 mL/min/1 .73m2 [facility] eGFR by MDRD 105 > OR = 60 mL/min/1 .73m2 [facility] BUN/Creatinine Ratio NOT APPLICABLE 6 - 22 (calc) [facility] Sodium 139 135 - 146 mmol/L [facility] Potassium 4.6 3.5 - 5.3 mmol/L [facility] Chloride 101 98 - 110 mmol/L [facility] CO2 29 20 - 32 mmol/L [facility] Calcium 9.3 8.6 - 10.4 mg/dL [facility] Protein Total 6.6 6.1 - 8.1 g/dL [facility] Albumin 4.3 3.6 - 5.1 g/dL [facility] Globulin Total 2.3 1.9 - 3.7 g/dL (calc) [facility] Albumin/Globulin Ratio 1.9 1.0 - 2.5 (calc) [facility] Bilirubin Total 0.5 0.2 - 1.2 mg/dL [facility] Alkaline Phosphatase 189(H) 37 - 153 U/L [facility] AST 25 10 - 35 U/L [facility] ALT 34(H) 6 - 29 U/L [facility] Comment: Test Performed at: [facility] [address] [place] [address] ROBERT PRINCE DO,MPH Blood BLOOD SPECIMEN / Unknown 08/26/2019 12:05 PM RETAIL INTERIOR DESIGNER 08/26/2019 12:06 PM RETAIL INTERIOR DESIGNER Ann Marie Talavera MD LAB - CHEMISTRY ORDERABLES Final Result Performing Organization Address [facility] Co de Phone Number [facility] [address] [place] [address] * (ABNORMAL) LIPID PROFILE (08/26/2019 12:05 PM RETAIL INTERIOR DESIGNER) Cholesterol 220(H) <200 mg/dL [facility] HDL Cholesterol 105 > OR = 50 mg/dL [facility] Triglycerides 93 <150 mg/dL [facility] LDL Calculated 96 mg/dL (calc) [facility] Comment: Reference range: <100 Desirable range <100 mg/dL for primary prevention; <70 mg/dL for patients with CHD or diabetic patients with > or = 2 CHD risk factors. LDL-C is now calculated using the Harvey-Aron calculation, which is a validated novel method providing better accuracy than the Friedewald equation in the estimation of LDL-C. Harvey SS et al. SURENDRA. 2013;310(19): 6726-4857 (http://education.Wonderflow/faq/SFB029) CHOL/HDLC RATIO 2.1 <5.0 (calc) [facility] Non HDL Cholesterol 115 <130 mg/dL (calc) [facility] Comment: For patients with diabetes plus 1 major ASCVD risk factor, treating to a non-HDL-C goal of <100 mg/dL (LDL-C of <70 mg/dL) is considered a therapeutic option. Test Performed at: [facility] [address] [place] [address] ROBERT PRINCE DO,MPH Blood BLOOD SPECIMEN / Unknown 08/26/2019 12:05 PM RETAIL INTERIOR DESIGNER 08/26/2019 12:06 PM RETAIL INTERIOR DESIGNER Ann Marie Talavera MD LAB - CHEMISTRY ORDERABLES Final Result Performing Organization Address City/[facility] Co de Phone Number [address] [address] [place] [address] * HEPATITIS C ANTIBODY (03/09/2018 11:07 AM CDT) Hepatitis C Antibody <0.1 0.0 - 0.9 s/co ratio [facility] INSURANCE BILL Comment: Negative: < 0.8 Indeterminate: 0.8 - 0.9 Positive: > 0.9 . The CDC recommends that a positive HCV antibody result be followed up with a HCV Nucleic Acid Amplification test (084740). Blood BLOOD SPECIMEN / Unknown 03/09/2018 11:07 AM CDT 03/09/2018 Narrative Resulting Agency Comment [facility] [address] [id number] Reece Storm MD LAB - CHEMISTR Y ORDERABLES Final Result [facility] INSURANCE BILL [address] [place] [address] from Last 3 Months or Most Recently Relevant to Health Maintenance Insurance MANAGED MEDICARE ADV [employer] Care Teams Accordion Maker Relationship Specialty Start Date End Date Shilpi Apodaca MD [address] [address] PCP - General 02/05/19
--- OUTSIDE RECORDS SUMMARY | 2024-12-27 00:56 | XMS_ITS | Data Portability ---
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 Carotid duplex she was asked to see her eye doctor again. Follow up with me in 1 month where we can re-evaluate her clinical status hopefully get some old records and re-evaluate her blood pressure. Not available 04/24/2024 13:07:25 06/01/2024 06/01/2024 phentermine to help with weight loss. Elevated alkaline phosphatase negative liver ultrasound hypertension appears to be controlled she will see me in a month she is going to really watch her diet carotid duplex less than 80% blockage by velocities 81 mg aspirin daily [email or web address] Not available 06/05/2024 20:24:58 06/28/2024 06/28/2024 I query a traumatic rotator cuff tear we will x-ray of the shoulder and get her seen by Orthopedics keep her regularly scheduled follow up for her medical [email or web address] Not available 06/28/2024 23:01:30 Plan of Treatment Reminders Order Date Submit Date Provider Last Modified By Organization Details Last Modified Time Details Appointments None recorded. Lab lipid panel, serum 2023 024 ROMEL [facility], [address] [address], [place], [address], 08:26:34 CMP, serum or plasma 2023 [facility], [address], [place], [address], 08:26:35 CBC w/ auto diff 2023 ROMELCHASTITY Manrique, [address], [place], [address], 08:26:39 HbA1c (hemoglobin A1c), blood [facility]23 [facility], [address], [place], [address], 08:26:37 TSH, ultra-sensi tive, serum 2023 [facility], [address], [place], [address], 4 08:26:38 T3, free, serum or plasma 2023 [facility], [address], [place], [address], 4 08:26:40 T4, free, serum 2023 [facility], [address], [place], [address], 4 08:26:41 Referral orthopedic surgeon referral 2023 ROMEL De Guzman MD, [address], [place], [address], 5 14:19:15 Procedures None recorded. Surgeries None recorded. Imaging US, duplex, carotid artery [address] (Imaging), [address], [place], [address], 16:38:26 Medication Orders None recorded. Patient TargetsNo targets recorded. Patient Instructions Encounter Date Encounter Id Patient Instructions Last Modified By Organization Details Last Modified Time 04/21/2024 [id number] A healthy lifestyle: care instructions [email or web address] Not available 04/21/2024 15:20:02 06/01/2024 [id number] A healthy lifestyle: care instructions Not available 06/05/2024 20:25:28 Reason for Referral Orthopedic Surgeon Referral for Pain of right shoulder joint Referring Physician: Katie Goodwin, Internal Medicine, Encounter Date: 06/28/2024 Results Created Date Observation Date Name Description Value Unit Range Abnormal Flag Note LastModifiedBy Organization Detail LastModifiedTime 04/21/2004/22/2024 LIPID PANEL cholesterol, total 204 mg/dL 100-19 9 above high normal Not Available [facility] ([facility]) [address] [place], [address], 04/22/2024 08:26:34 04/21/2004/22/2024 LIPID PANEL triglyceride s 76 mg/dL 0-149 Not Available [facility] ([facility]) [address] [place], [address], 04/22/2024 08:26:34 04/21/20 24 04/22/2024 LIPID PANEL HDL cholesterol 94 mg/dL >39 Not Available [facility] ([facility]) [address] [place], [address], 04/22/2024 08:26:34 04/21/2004/22/2024 LIPID PANEL VLDL cholesterol sana 13 mg/dL 5-40 Not Available [facility] ([facility]) [address] [place], [address], 04/22/2024 08:26:34 04/21/2004/22/2024 LIPID PANEL LDL chol calc ([facility]) 97 mg/dL 0-99 Not Available [facility] ([facility]) [address] [place], [address], 04/22/2024 08:26:34 04/21/20 24 04/22/2024 COMP. METAB OLIC PANEL (14) glucose 82 mg/dL 70-99 Not Available [facility] ([facility]) [address] [place], [address], 04/22/2024 08:26:35 04/21/20 24 04/22/2024 COMP. METAB OLIC PANEL (14) BUN 8 mg/dL 8-27 Not Available [facility] ([facility]) [address] [place], [address], 04/22/2024 08:26:35 04/21/20 24 04/22/2024 COMP. METAB OLIC PANEL (14) creatinine 0.65 mg/dL 0.57-1 .00 Not Available [facility] ([facility]) [address] [place], [address], 04/22/2024 08:26:35 04/21/20 24 04/22/2024 COMP. METAB OLIC PANEL (14) eGFR 95 mL/mi n/1.7 3 >59 Not Available [facility] ([facility]) [address] [place], [address], 04/22/2024 08:26:35 04/21/20 24 04/22/2024 COMP. METAB OLIC PANEL (14) BUN/creatini ne ratio 12 12-28 Not Available [facility] ([facility]) [address] [place], [address], 04/22/2024 08:26:35 04/21/20 24 04/22/2024 COMP. METAB OLIC PANEL (14) sodium 141 mmol/ L 134-14 4 Not Available [facility] ([facility]) [address] [place], [address], 04/22/2024 08:26:35 04/21/20 24 04/22/2024 COMP. METAB OLIC PANEL (14) potassium 4.7 mmol/ L 3.5-5. 2 Not Available [facility] ([facility]) [address] [facility], [place], [address], 04/22/2024 08:26:35 04/21/20 24 04/22/2024 COMP. METAB OLIC PANEL (14) chloride 102 mmol/ L 96-106 Not Available [facility] ([facility]) [address] [facility], [place], [address], 04/22/2024 08:26:35 04/21/20 24 04/22/2024 COMP. METAB OLIC PANEL (14) carbon dioxide, total 24 mmol/ L 20-29 Not Available [facility] ([facility]) [address] [facility], [place], [address], 04/22/2024 08:26:35 04/21/20 24 04/22/2024 COMP. METAB OLIC PANEL (14) calcium 9.1 mg/dL 8.7-10 .3 Not Available [facility] ([facility]) [address] [facility], [place], [address], 04/22/2024 08:26:35 04/21/20 24 04/22/2024 COMP. METAB OLIC PANEL (14) protein, total 6.3 g/dL 6.0-8. 5 Not Available [facility] ([facility]) [address] [facility], [place], [address], 04/22/2024 08:26:35 04/21/20 24 04/22/2024 COMP. METAB OLIC PANEL (14) albumin 4.3 g/dL 3.9-4. 9 Not Available [facility] ([facility]) [address] [facility] [place], [address], 04/22/2024 08:26:35 04/21/20 24 04/22/2024 COMP. METAB OLIC PANEL (14) globulin, total 2.0 g/dL 1.5-4. 5 Not Available [facility] ([facility]) [address] [facility] [place], [address], 04/22/2024 08:26:35 04/21/20 24 04/22/2024 COMP. METAB OLIC PANEL (14) bilirubin, total <0.2 mg/dL 0.0-1. 2 Not Available [facility] ([facility]) [address] [facility] [place], [address], 04/22/2024 08:26:35 04/21/20 24 04/22/2024 COMP. METAB OLIC PANEL (14) alkaline phosphatase 232 IU/L 44-121 above high normal Not Available [facility] ([facility]) [address] [facility] [place], [address], 04/22/2024 08:26:35 04/21/20 24 04/22/2024 COMP. METAB OLIC PANEL (14) AST (SGOT) 27 IU/L 0-40 Not Available [facility] ([facility]) [address] [facility] [place], [address], 04/22/2024 08:26:35 04/21/20 24 04/22/2024 COMP. METAB OLIC PANEL (14) ALT (SGPT) 24 IU/L 0-32 Not Available [facility] ([facility]) [address] [place], [address], 04/22/2024 08:26:35 04/21/20 24 04/22/2024 HEMOG LOBIN A1C hemoglobin A1C 5.7 % 4.8-5. 6 above high normal Predi abete s: 5.7 - 6.4 Diabe saul: >6.4 Glyce diony contr ol for adult s with diabe saul: <7.0 Not Available [facility] ([facility]) [address] [place], [address], 04/22/2024 08:26:36 04/21/20 24 04/22/2024 TSH TSH 0.930 uIU/m L 0.450- 4.500 Not Available [facility] ([facility]) [address] [place], [address], 04/22/2024 08:26:38 04/21/20 24 04/22/2024 CBC WITH DIFFE RENTI AL/PL ATELE T WBC 8.2 x10e3 /uL 3.4-10 .8 Not Available [facility] ([facility]) [address] [place], [address], 04/22/2024 08:26:39 04/21/2004/22/2024 CBC WITH DIFFE RENTI AL/PL ATELE T RBC 4.56 x10e6 /uL 3.77-5 .28 Not Available [facility] ([facility]) [address] [facility], [place], [address], 04/22/2024 08:26:39 04/21/20 24 04/22/2024 CBC WITH DIFFE RENTI AL/PL ATELE T hemoglobin 14.1 g/dL 11.1-1 5.9 Not Available [facility] ([facility]) [address] [place], [address], 04/22/2024 08:26:39 04/21/20 24 04/22/2024 CBC WITH DIFFE RENTI AL/PL ATELE T hematocrit 43.8 % 34.0-4 6.6 Not Available [facility] ([facility]) [address] [place], [address], 04/22/2024 08:26:39 04/21/20 24 04/22/2024 CBC WITH DIFFE RENTI AL/PL ATELE T MCV 96 fL 79-97 Not Available [facility] ([facility]) [address] [place], [address], 04/22/2024 08:26:39 04/21/20 24 04/22/2024 CBC WITH DIFFE RENTI AL/PL ATELE T MCH 30.9 pg 26.6-3 3.0 Not Available [facility] ([facility]) [address] [facility], [place], [address], 04/22/2024 08:26:39 04/21/20 24 04/22/2024 CBC WITH DIFFE RENTI AL/PL ATELE T MCHC 32.2 g/dL 31.5-3 5.7 Not Available [facility] ([facility]) [address] [facility], [place], [address], 04/22/2024 08:26:39 04/21/2004/22/2024 CBC WITH DIFFE RENTI AL/PL ATELE T RDW 13.3 % 11.7-1 5.4 Not Available [facility] ([facility]) [address] [facility], [place], [address], 04/22/2024 08:26:39 04/21/20 24 04/22/2024 CBC WITH DIFFE RENTI AL/PL ATELE T platelets 367 x10e3 /uL 150-45 0 Not Available [facility] ([facility]) [address] [facility], [place], [address], 04/22/2024 08:26:39 04/21/20 24 04/22/2024 CBC WITH DIFFE RENTI AL/PL ATELE T neutrophils 55 % notest ab. Not Available [facility] ([facility]) [address] [facility], [place], [address], 04/22/2024 08:26:39 04/21/20 24 04/22/2024 CBC WITH DIFFE RENTI AL/PL ATELE T lymphs 35 % notest ab. Not Available [facility] ([facility]) [address] [facility], [place], [address], 04/22/2024 08:26:39 04/21/20 24 04/22/2024 CBC WITH DIFFE RENTI AL/PL ATELE T monocytes 6 % notest ab. Not Available [facility] ([facility]) [address] [facility], [place], [address], 04/22/2024 08:26:39 04/21/20 24 04/22/2024 CBC WITH DIFFE RENTI AL/PL ATELE T eos 3 % notest ab. Not Available [facility] ([facility]) [address] [facility], [place], [address], 04/22/2024 08:26:39 04/21/20 24 04/22/2024 CBC WITH DIFFE RENTI AL/PL ATELE T basos 1 % notest ab. Not Available [facility] ([facility]) [address] [facility], [place], [address], 04/22/2024 08:26:39 04/21/20 24 04/22/2024 CBC WITH DIFFE RENTI AL/PL ATELE T neutrophils (absolute) 4.5 x10e3 /uL 1.4-7. 0 Not Available [facility] ([facility]) [address] [facility], [place], [address], 04/22/2024 08:26:39 04/21/20 24 04/22/2024 CBC WITH DIFFE RENTI AL/PL ATELE T lymphs (absolute) 2.9 x10e3 /uL 0.7-3. 1 Not Available [facility] ([facility]) [address] [facility], [place], [address], 04/22/2024 08:26:39 04/21/20 24 04/22/2024 CBC WITH DIFFE RENTI AL/PL ATELE T monocytes(ab solute) 0.5 x10e3 /uL 0.1-0. 9 Not Available [facility] ([facility]) [address] [facility], [place], [address], 04/22/2024 08:26:39 04/21/20 24 04/22/2024 CBC WITH DIFFE RENTI AL/PL ATELE T eos (absolute) 0.2 x10e3 /uL 0.0-0. 4 Not Available [facility] ([facility]) [address] [place], [address], 04/22/2024 08:26:39 04/21/20 24 04/22/2024 CBC WITH DIFFE RENTI AL/PL ATELE T baso (absolute) 0.1 x10e3 /uL 0.0-0. 2 Not Available [facility] ([facility]) [address] [place], [address], 04/22/2024 08:26:39 04/21/2004/22/2024 CBC WITH DIFFE RENTI AL/PL ATELE T immature granulocytes 0 % notest ab. Not Available [facility] ([facility]) [address] [place], [address], 04/22/2024 08:26:39 04/21/2004/22/2024 CBC WITH DIFFE RENTI AL/PL ATELE T immature grans (abs) 0.0 x10e3 /uL 0.0-0. 1 Not Available [facility] ([facility]) [address] [place], [address], 04/22/2024 08:26:39 04/21/20 24 04/22/2024 TRIIO DOTHY ISA E (T3), FREE triiodothyro nine (T3), free 2.7 pg/mL 2.0-4. 4 Not Available [facility] ([facility]) [address] [place], [address], 04/22/2024 08:26:40 04/21/2004/22/2024 T4,FR EE(DI RECT) T4,free(dire ct) 1.35 NG/dL 0.82-1 .77 Not Available [facility] ([facility]) [address] [place], [address], 04/22/2024 08:26:41 05/06/2005/07/2024 GGT GGT 25 IU/L 0-60 Not Available [facility] ([facility]) [address] [place], [address], 05/07/2024 08:29:55 05/14/20 24 2024 ALK PHOS ISOEN ZYME alkaline phosphatase 187 IU/L 44-121 above high normal Not Available [facility] ([facility]) [address] [place], [address], 05/17/2024 15:10:14 05/14/20 24 05/17/2024 ALK PHOS ISOEN ZYME liver fraction: 28 % 18-85 Not Available [facility] ([facility]) [address] [place], [address], 05/17/2024 15:10:14 05/14/20 24 05/17/2024 ALK PHOS ISOEN ZYME bone fraction: 38 % 14-68 Not Available [facility] ([facility]) [address] [facility], [place], [address], 05/17/2024 15:10:14 05/14/2005/17/2024 ALK PHOS ISOEN ZYME intestinal frac.: 33 % 0-18 above high normal Intes tinal alkal ine phosp hatas e is seen nuvia lly in the serum of subje cts who have B or O blood types , espec ially after a fatty meal. Patho logic ally the band may be prese nt in perfo ratio n of the bowel , ulcer ative disea se of the intes javier and faint ly in liver cirrh osis. Acute infar ction of the intes javier will cause a relea se of intes tinal ALP from the mucos a. Large erosi ve or ulcer ative lesio ns of the stoma ch, duode num or other small intes tinal areas , or colon may resul t in an eleva tion of the serum ALP level . The small intes tinal lesio ns assoc iated with malab sorpt ion are assoc iated with an eleva tion of the serum intes tinal ALP level only if there is an erosi ve or ulcer ative mucos al lesio n. Not Available [facility] ([facility]) [address], [place], [address], 05/17/2024 15:10:14 05/19/20 24 05/19/2024 US, liver No observ ation record ed. [address], [place], [address], 05/24/2024 13:14:20 05/19/20 24 05/19/2024 US, duple x, carot id arter y No observ ation record ed. [address] [facility], [place], [address], 05/24/2024 13:13:41 05/19/20 24 05/19/2024 US, duple x, carot id arter y No observ ation record ed. [address], [place], [address], 05/24/2024 13:13:42 07/12/20 24 04/15/2024 DEXA No observ ation record ed. BARCODE Not Available 2023 14:15:42 07/12/20 24 04/15/2024 MAMMO , diagn ostic , tomos ynthe sis, bilat eral No observ ation record ed. BARCODE Not Available 2023 14:15:43 07/12/20 24 12/01/2023 MAMMO , diagn ostic , bilat eral No observ ation record ed. BARCODE Not Available 2023 14:15:43 07/12/20 24 09/18/2021 MAMMO , diagn ostic , tomos ynthe sis, bilat eral No observ ation record ed. BARCODE Not Available 2023 14:15:43 Result Notes None recorded. Problems Name Problem SNOMED Code Status Onset Date Resolution Date Notes Provider Name and Address Organization Details Recorded Time Amaurosis 92509859 Active 2023 Perri Kidd MA null, [place] - [facility] 4 12:42:05 Essential hypertension 61274699 Active 2023 Perri Kidd MERVIN villalpando, [facility] 4 12:42:06 Morbid obesity 737841403 Active 2023 MERVIN Acharya, [facility] 12:42:07 Problem Notes None recorded. Procedures Surgical History Date Name Laterality Status Provider Name and Address Organization Details Recorded Time Back Surgery completed Juliette RaymondMERVIN [facility] 1 11:58:15 Hernia Repair completed [facility] 04/21/2024 11:58:23 Knee Surgery completed [facility] 1 11:58:33 Tonsillectomy completed [facility] 04/21/2024 11:58:41 Imaging Results None recorded. Procedure Notes None recorded. Medical Equipment None Reported. Allergies Allergen ID Allergen Name Allergen Category Reaction Reaction Severity Criticality Documentation Date Start Date Code Code System Note Provider Name and Address Organization Details Recorded Time 166263 adhesive tape environme nt,medica tion Not available Not available Not available 04/21/2024 12737 UNK MERVIN Banda, [facility] 11:40:04 Medications Name Sig Start Date Stop Date Status Note LastModified by Organization Details LastModified Time azithromyci n 250 mg tablet TAKE 2 TABLETS BY MOUTH TODAY, THEN TAKE 1 TABLET DAILY FOR 4 DAYS DIRECTED active Not Available Not Available No t Available valacyclovi r 1 gram tablet TAKE 2 TABLETS BY MOUTH EVERY 12 HOURS FOR 2 DOSES NEEDED FOR OUTBREAKS active Not Available Not Available No t Available phentermine 37.5 mg tablet TAKE 1 TABLET BY MOUTH EVERY DAY MUST ADMINISTE R 30 MINUTES BEFORE OR 1-2 HOURS AFTER BREAKFAST active Not Available Not Available No t Available amlodipine 5 mg tablet TAKE 1 TABLET BY MOUTH EVERY DAY IN THE MORNING active Not Available Not Available No t Available oxycodone-a cetaminophe n 7.5 mg-325 mg tablet TAKE 1 TABLET BY MOUTH EVERY 4 TO 6 HOURS NEEDED 04/21 completed Not Available Not Available Not Available levothyroxi ne 112 mcg tablet TAKE 1 TABLET BY MOUTH EVERY DAY active Not Available Not Available No t Available calcium active Not Available Not Avail able Not Available vitamin E active Not Available Not Lydia ilable Not Available potassium alum (bulk) active Not Available Not Available Not Available vit D3 50 mcg-vitamin K1 500 mcg-MK4 1,500 mcg-MK7 180 mcg capsule Take by oral route. active Not Available Not Available No t Available Vitals Date Recorded Body height Body mass index (BMI) Body weight Heart rate Oxygen saturation Oxygen saturation in Arterial blood by Pulse oximetry Systolic blood pressure Diastolic blood pressure Provider Name and Address Organization Details Last Updated DateTime 4 162.56 cm 45.2 kg/m2 831668. 59 g 85 /min 99 % 99 % 140 mm[Hg] 90 mm[Hg] Juliette Raymond MA [facility] 4 11:39:26 Date Recorded Body height Body mass index (BMI) Body weight Heart rate Oxygen saturation Oxygen saturation in Arterial blood by Pulse oximetry Systolic blood pressure Diastolic blood pressure Provider Name and Address Organization Details Last Updated DateTime 4 162.56 cm 45.1 kg/m2 307532. 79 g 77 /min 96 % 96 % 136 mm[Hg] 80 mm[Hg] Renetta Alonzo MA [facility] 4 11:43:21 Date Recorded Body height Body mass index (BMI) Body weight Heart rate Oxygen saturation Oxygen saturation in Arterial blood by Pulse oximetry Systolic blood pressure Diastolic blood pressure Provider Name and Address Organization Details Last Updated DateTime 4 162.56 cm 44.1 kg/m2 946766. 16 g 67 /min 97 % 97 % 136 mm[Hg] 68 mm[Hg] Mariangel Owen MA [facility] 4 14:41:35 Social History Question Answer Notes LastModified by Organizat ion Details LastModified Time Tobacco Smoking Status Never Smoker Juliette Raymond MA [facility] 04/21/2024 11:57:59 Do You Have An Advance Directive? No Information not available 04/21/2024 Are You Blind Or Do You Have Difficulty Seeing? Yes Wears Glasses Information not available 04/21/2024 What Is Your Level Of Caffeine Consumption? Occasional Information not available 04/21/2024 In The 14 Days Before Symptom Onset, Have You Had Close Contact With A Laboratory-confir med COVID-19 While That Case Was Ill? No Information not available 04/21/2024 In The 14 Days Before Symptom Onset, Have You Had Close Contact With A Person Who Is Under Investigation For COVID-19 While That Person Was Ill? No Information not available 04/21/2024 Have You Been To An Area Known To Be High Risk For COVID-19? No Information not available 04/21/2024 Are You Deaf Or Do You Have Serious Difficulty Hearing? No Information not available 04/21/2024 What Type Of Diet Are You Following? REGULAR Information not available 04/21/2024 Are There Any Guns Present In Your Home? No Information not available 04/21/2024 What Was The Date Of Your Most Recent Tobacco Screening? 06/28/2024 [email or web address] Information not available 06/28/2024 What Is Your Relationship Status? Information not available 04/21/2024 Do You Use Your Seat Belt Or Car Seat Routinely? Yes Information not available 04/21/2024 Do You Have Smoke And Carbon Monoxide Detectors In Your Home? Yes Information not available 04/21/2024 Do You Use Sunscreen Routinely? Yes Information not available 04/21/2024 Sex: Female Functional Status Question Answer Note LastModified by Organizat ion Details LastModified Time Do you use any illicit or recreational drugs? No Information not available 04/21/2024 What is your level of alcohol consumption? Occasional Information not available 04/21/2024 Are you currently employed? No Information not available 04/21/2024 Are you able to care for yourself? Yes Information n ot available 04/21/2024 Mental Status None recorded. Family History Relationship Description Onset Age of this Age Resolved Age Notes LastModified by Organization Details LastModified Time Sister Family history of breast cancer [email or web address] Not available 2023 11:43:35 Sister Family history of breast cancer [email or web address] Not available 2023 11:43:35 Mother Disorder of thyroid gland [email or web address] Not available 2023 11:57:43 Medical History Condition Response Coronary Artery Disease N Atrial Fibrillation N High Blood Pressure Y Depression N COPD N Blood Clots N Anxiety Disorder N Muscle, Joint, or Bone Problems N Acid Reflux (GERD) N Cancer N Stroke N High Cholesterol N Liver Disease N Headaches Y Kidney or Bladder Problems N Thyroid Problems Y GI Problems N Have you had a mammogram in the last yea r? Y Skin Problems N Anemia N Heart Attack (CT) N Diabetes N Seizures/Epilepsy N Have you had a colonoscopy in the last 1 0 years? Y Asthma N Allergies N Hepatitis N Osteoporosis N Heart Failure N Gynecological HistoryNo gynecological history recorded. Obstetrics History GPAL:G 0 P 0 0 0 0 Immunizations Vaccine Type Date Status Note Provider Nam e and Address Organization Details Recorded Time Influenza, split virus, quadrivalent, preservative 6 completed MERVIN [place]ary[place], [place] - [facility] 06/28/2024 17:53:29 Influenza, split virus, quadrivalent, preservative 7 completed MERVIN [place] [facility] 06/28/2024 17:53:29 Influenza, high-dose, quadrivalent, PF 0 completed MERVIN [place] [facility] 06/28/2024 17:53:29 Influenza, adjuvanted, quadrivalent, PF 3 [place] MERVIN [place] [facility] 06/28/2024 17:53:29 COVID-19, mRNA, LNP-S, PF, 30 mcg/0.3 mL dose 2 completed MERVIN [place] [facility] 06/28/2024 17:53:29 COVID-19 vaccine, vector-nr, rS-Ad26, PF, 0.5 mL 1 completed MERVIN [place] [facility] 06/28/2024 17:53:29 pneumococcal polysaccharide PPV23 2 completed [place]ERVIN [place] [facility] 06/28/2024 17:53:29 influenza, unspecified formulation 8 completed [place]ERV[place] - [facility] 06/28/2024 17:53:29 Tdap 9 completed MERVIN Acharya, JASON - [facility] 06/28/2024 17:53:29 Pneumococcal conjugate PCV 13 0 completed Perri Kidd MA null, [place] - [facility] 06/28/2024 17:53:29 Influenza, high-dose, trivalent, PF 0 completed MERVIN Acharya, [place] - [facility] 06/28/2024 17:53:29 Past Encounters Encounter ID Performer Location Encounter Start Date Encounter Closed Date Diagnosis/Indication Diagnosis SNOMED-CT Code Diagnosis ICD10 Code Diagnosis Note [id number] Katie Goodwin MD [facility] (Adult Med) [address] [place] [phone] 04/21/2024 11:24:54 04/21/2024 12:46:37 Morbid obesity 009075631 E66.01 Essential hypertension 10308969 I10 Amaurosis 21158870 H54.7 Hypothyroidism 40002725 E03.9 Diabetes m ellitus screening 650304875 Z13.1 Amaurosis fugax 97272763 G45.3 [id number] Katie Goodwin MD [facility] (Adult Med) [address] [place] [phone] 06/01/2024 11:13:40 06/01/2024 12:34:23 Obesity 129979841 E66.9 Essential hypertension 40530572 I10 Alkaline p hosphatase above reference range 882090119 R74.8 [id number] Katie Goodwin MD [facility] [place] [address] [place] [address] 06/28/2024 14:30:49 06/28/2024 15:22:55 Body mass index 30+ - obesity 438695718 Z68.41 Pain of ri ght shoulder joint 1224689332 4733036 M25.511 Health Concerns Section Related Observation LastModified by Organization Detai ls LastModified Time None Recorded Concern Status LastModified by Organization Details LastModified Time None Recorded Advance Directives Directive N: Payers Insurance Date Sequence Insurance Name Policy Number Policy Dominguez Covered Member ID Dominguez Member ID Guarantor Name 08/19/2024 1 [facility] (MEDICARE REPLACEMENT/A DVANTAGE - HMO) [id number] Rosalia Chavira [id number] Rosalia Chavira Notes Date Note Type Note Provider Name and Address Organization Details Recorded Time 04/21/2024 text/html 68-year-old new patient history of hypertension hypothyroid obesity ocular migraines. Episode of some visual disturbance left eye black splotches from top to bottom that. Acutely and went away acutely.Medications levothyroxine 112 mcg daily phentermine 37.5 daily. Allergies none surgeries total knee cholecystectomy appendectomy breast since cyst and lower back surgery. Family history breast cancer in 2 aunts she is no smoking or drinking or vaping not sure about flu COVID or pneumonia Katie Goodwin MD Attn: Accounting, [address] [facility], [place], [address], [facility] - [facility] 04/24/2024 13:07:59 06/01/2024 text/html hypertension no headache or dizziness not been taking amlodipine. Levothyroxine for her thyroid no heat or cold intolerance. History of fatty liver needs some weight loss. We will still trying to get her mammogram and colonoscopy Katie Goodwin MD Attn: Accounting, [address] [facility], [place], [address], [place] - [facility] 06/05/2024 20:25:30 06/28/2024 text/html she fell the oth er day on outstretched arms did not have any cardiopulmonary neurological problems preceding the fall did not get knocked out but she can not raise her right arm up no numbness or tingling Katie Goodwin MD Attn: Accounting, [address] [facility], [place], [address], [place] - [facility] 06/28/2024 23:01:46 OBGyn Episode No OBEpisode recorded.
[2024-12-27] MEDS: ACETAMINOPHEN 500 MG TABLET 1000 MG PO (06:35)
[2024-12-27] MEDS: LACTATED RINGERS 1,000 ML 30 ML IV CONT ×2 (06:40→09:03)
[2024-12-27] MEDS: KETOROLAC 15 MG/ML VIAL (*BKC) IV PUSH (06:42)
--- NOTE | 2024-12-27 06:55 | WPDHPUPDATE1 ---
History and Physical Update Update Date/Time: 12/27/24 06:55 History and Physical has been reviewed, including an updated exam of the patient. There are NO changes in the patient's condition. Risks, benefits, and alternatives have been discussed and questions answered. Patient agrees to proceed with procedure.
--- NOTE | 2024-12-27 06:57 | WPDANESEPPF ---
Anes - Initial Pre Proc Eval Procedure: Operation Date: 12/27/24 07:30 Proposed Procedures p Right Shoulder Arthroscopy, Open Rotator Cuff Repair, Distal Clavicle Excision - Scotty De Guzman MD Date/Time: 12/27/24 06:57 Surgeon: Scotty De Guzman MD Pre Op Diagnosis: right rotator cuff tear, AC arthritis Patient Data Age: 69 Gender: F Height: 1.63 m Weight: 118.4 kg Last Vital Signs Temp 36.1 C L 12/27/24 06:15 Pulse 85 12/27/24 06:15 Resp 16 12/27/24 06:15 BP 160/64 H 12/27/24 06:15 Pulse Ox 98 12/27/24 06:15 O2 Del Method Room Air 12/27/24 06:15 Allergies Allergy/AdvReac Type Severity Reaction Status Date / Time adhesive Allergy Mild RASH Verified 12/27/24 06:59 polymyxin B (From Neosporin AdvReac Mild Rash Verified 12/27/24 06:59 Plus) Home Medications ?Medication ?Instructions ?Recorded ?Confirmed ?Type fvuolvmpdzhh-fefiiady-qpdqxr 1 tablet PO DAILY 10/05/19 12/27/24 History tablet (Multivitamin 50 Plus tablet) potassium gluconate 550 mg (90 mg) 550 mg PO DAILY 11/03/19 12/27/24 History tablet valacyclovir 500 mg tablet 500 mg PO PRN PRN HERPES 11/03/19 12/16/24 History cholecalciferol (vitamin D3) 125 5,000 unit PO DAILY 04/27/20 12/27/24 History mcg (5,000 unit) tablet levothyroxine 112 mcg tablet 112 mcg PO DAILY #90 tabs 06/22/24 12/27/24 Rx phentermine 37.5 mg tablet 37.5 mg PO DAILY #90 tabs 06/22/24 12/27/24 Rx aspirin 81 mg tablet,delayed 81 mg PO DAILY 07/01/24 12/27/24 History release vitamin E (dl, acetate) 45 mg (100 45 mg PO DAILY 07/01/24 12/27/24 History unit) capsule naproxen sodium 220 mg tablet 440 mg PO PRN PRN pain 12/16/24 12/27/24 History (Aleve) Patient hx anesthesia problems: post op nausea/vomiting Family hx anesthesia problems: none Results Review: All pre-operative results and documents have been reviewed as part of the pre-operative evaluation. [facility] Past Medical History Medical History BMI 40.0-44.9, adult Post-menopausal bleeding Status post hysteroscopy 2009, 2012, 2018 Anxiety Depression Vitamin D deficiency, unspecified BMI 39.0-39.9,adult Extensor intersection syndrome BMI 38.0-38.9,adult Cholecystectomy planned Essential hypertension Obesity Hypothyroidism Surgical History Surgical History Previous back surgery S/P laparoscopic cholecystectomy De Quervain's syndrome (tenosynovitis) Right first dorsal compartment release June 2020 History of hernia surgery History of appendectomy H/O: knee surgery x 2 arthoscopy and Left Total knee replacement H/O breast biopsy Family History Family History Mother Hypertension Family history of arthritis Father Family history of congestive heart failure Social History Social History (Updated 11/11/24 @ 12:58 by Denise Townsend CMA) Smoking packs per day: 0.5 Smoking cigarettes per day: 10.0 Years smoked: 4 Smoking pack-years: 2.00 Smoking status: Former smoker Tobacco type: cigarettes Second hand tobacco smoke exposure: Yes ( OUTSIED) Smoking end date: 07/14/79 Alcohol intake: current Drinks per week: 2 Substance use: never Substance use type: does not use Do You Feel Safe in your Home?: Yes Lack of Transportation: No Current Housing: I Do Not Have Housing Concerned About Future Housing: No Difficulty Paying Gas/Electric Bills: No Difficulty Paying for Meds: No Currently Unemployed: No Education: High School Diploma/GED Difficulty w/ Childcare or Family Care: No Living arrangements: with family Spiritual care concerns: No Anes - Eval Final PreProcedure Day of Procedure 12/27/24 06:57 Patient weight: morbidly obese Heart: regular rate and rhythm Lungs: clear to auscultation Airway: Mallampati scale class III Neurological: alert and oriented Last oral intake: >/= 8 hours ASA classification: III Emergent: no Anesthetic plan: proceed Anesthesia type and monitoring: general ETT and standard monitoring Results Review: All pre-operative results and documents have been reviewed as part of the pre-operative evaluation. Informed Consent: The patient's anesthetic plan and its attendant risks and benefits were discussed with the patient/family/POA. Questions were solicited and answers provided to the satisfaction of the patient/family/POA.
--- NOTE | 2024-12-27 07:11 | WPDANESPNB ---
Anes - Peripheral Nerve Block Date/Time: 12/27/24 07:11 I have discussed with the patient/family/POA the placement of a peripheral nerve block for post-operative pain management, including associated risks, benefits, complications, and side effects. Alternative methods of post-operative analgesia were detailed. Questions were solicited and answers provided to the satisfaction of the patient/family/POA. Time-Out: A pre-procedural Time-Out was completed immediately before starting the procedure and confirmed: Patient Identification, Site, Procedure, Patient Position and the Availability of Requisite Equipment. Clinical Indications: Acute post-operative pain management requested by the operative surgeon. Nerve Block Insertion Note Anes-nerve block: interscalene right Patient position: supine Skin prep: chlorhexidine Needle: 22 gauge, stimulating, insulated echogenic needle. Needle length: 50 mm Technique: ultrasound Injectate: bupivacaine 0.5% with epi 5 mcg/ml (20cc- no epi) Observations: tolerated well Complications: none Procedure start time:: 719 Procedure end time:: 723
[2024-12-27] MEDS: ceFAZolin 2 GM/D5W 50 ML 2 GM/50 ML BAG IVPB (07:27)
[2024-12-27] MEDS: LIDO 1%/EPINEPHRINE 1:100,000 20 ML VIAL INFILTRATE (08:16)
--- NOTE | 2024-12-27 08:47 | W.PM.PROC2 ---
Procedure Note - Detailed Date of Procedure 12/27/24 Pre-op Diagnosis Right rotator cuff tear AC arthritis Post-op Diagnosis Same Procedure Performed Rotator cuff repair Distal clavicle excision Surgeon Scotty De Guzman MD Anesthesia General Indications Pain and Weakness Findings Pain and Tearing of the rotator Cuff Description of Procedure Patient brought to the operative room #7. A general anesthetic was administered. The patient was placed in the beach chair position with the RIGHT shoulder exposed.? After sterile prep and drape, standard posterior and lateral portals were used for arthroscopy. The joint itself looked reasonably good the biceps tendon was intact.? There was fraying and tearing of the rotator cuff area in the supraspinatus tear region. This was gently debrided.? The subacromial space had an intense bursa, this was debrided with a shaver and acromioplasty performed arthroscopically.? The subacromial space was quite tight initially. I then proceeded to open the shoulder. A longitudinal incision made from the AC joint distalward over the shoulder.? Dissection carried down to the fascia. The fascia overlying the acromioclavicular joint was split. The AC joint found and a distal clavicle excision performed removing 3 to 4 millimeters of bone.? The edges beveled.? The deltoid was then split from the tip of the acromion. The remainder of the bursa was debrided.? The rotator cuff was torn in the supraspinatus interval. This was debrided and repaired to bone using #2 Ethibond suture.? At this point the deltoid was repaired to itself,the acromion and the trapezius #2 Ethibond. The skin was closed with 2-0 Vicryl and briana.? Sterile dressing applied patient tolerated well left the operating room satisfactory condition. Estimated Blood Loss 50 Drains No Packing No Pathology None sent Complications No immediate complications Condition Stable Disposition PACU [facility] Billing Surgery - Charge Forward: Surgery Billing ([id number] RTC Repair [id number] DCE)
== END 2024-12-27 11:20 | disposition home or self-care (01) ==
PROVIDERS: PCP Internal Medicine; Visit Provider Orthopaedic Surgery
PROC: (CPT 29805; principal; 2024-12-27 07:30)
DX: M75.101 Unspecified rotator cuff tear or rupture of right shoulder, not specified as traumatic (principal); M19.011 Primary osteoarthritis, right shoulder; G89.18 Other acute postprocedural pain; Z87.891 Personal history of nicotine dependence; E66.01 Morbid (severe) obesity due to excess calories; Z68.41 Body mass index [BMI] 40.0-44.9, adult
CPT/HCPCS: 23412; 23120; 64415; A9270; J0171; J0690; J1100; J1885; J2003; J2004; J2250; J2371; J2405; J2704; J3010; J7120